=== PATIENT | female | born 1985 | race Caucasian/White ===

== ENCOUNTER 2020-07-14 10:19 | Emergency (ER) | payer OTHER, SELFPAY ==
[2020-07-14 10:29] VITALS: BP 101/81; PULSE 88; RESP 18; TEMP 36.9; O2SAT 100; BMI 46.5
--- NOTE | 2020-07-14 11:04 | ED.BACK ---
HPI - Back Pain/Injury General Chief Complaint: Back Pain/Injury Stated Complaint: back pain Time Seen by Provider: 07/14/20 10:28 Source: patient Mode of arrival: ambulatory History of Present Illness HPI Narrative: 35-year-old female with no significant past medical history presenting to the ED complaining of acute on chronic low back pain greater on the right side radiating down right lower extremity worsening since yesterday. Denies known injury/trauma or falls. States went to urgent care yesterday was prescribed naproxen and Flexeril without relief. Denies numbness, tingling, weakness, urinary incontinence/retention. MD elicited complaint: back pain Related Data Previous Rx's Medication Instructions Recorded acetaminophen [Tylenol Extra 500 mg PO Q6H PRN #20 tab 07/14/20 Strength] lidocaine [Lidoderm] 1 patch TOPICAL DAILY PRN #30 ea 07/14/20 MDD remove after 12 hours tramadol 50 mg PO Q8H PRN 3 Days #9 tab 07/14/20 Allergies Allergy/AdvReac Type Severity Reaction Status Date / Time penicillin V Allergy Unknown unknown-, Verified 07/14/20 10:32 ? Penicillins [PENICILLINS] Allergy Unknown UNKNOWN Unverified 01/03/20 16:04 Review of Systems Review of Systems: Constitutional: No Fever, No Chills Genitourinary: No Urinary Incontinence/retention Musculoskeletal: + joint pain, No Myalgias, No Joint Swelling Skin: No Skin Lesions, No rash Neuro: No Weakness, No Numbness, No Paresthesias Yes all other systems are reviewed and are negative Neurologic: Denies Sensory deficit (Neuro) [facility] Past Medical History Attestation statement: The following information was validated with the patient. Medical History (Updated 07/14/20 @ 11:04 by BRUNO Higginbotham) No known health problems Social History Social History Advance Directives: No Advance Directives Information Provided: No Physical Exam Vital Signs: Vital Signs: Last Vital Signs Temp 98.5 F 07/14/20 10:29 Pulse 88 07/14/20 10:29 Resp 18 07/14/20 10:29 BP 101/81 07/14/20 10:29 Pulse Ox 100 07/14/20 10:29 Body Mass Index 46.5 Const: General: cooperative and healthy appearing Orientation/consciousness: patient oriented x3 Limitations: no limitations HENMT: Head: Yes normal to inspection Ears: hearing grossly normal bilaterally General nose exam: Normal external nose present Face and sinus: Yes normal facial exam Eyes: General: appearance normal, both eyes and all related structures EOM: EOMs intact bilaterally Neck: Neck: Yes normal visual inspection Resp: Effort & Inspection: normal respiratory effort Cardio: Rate: regular rate Back/Spine/Pelvis: Other: No midline thoracic/lumbar spinous tenderness or step-offs. + right-sided lumbar MSK tenderness to palpation Skin: Rashes: no rashes Wounds: no wounds Neuro: Other: Strength intact throughout. No saddle anesthesia. General: patient oriented x3, gait normal, tone normal and moves all extremities Gait exam (Neuro): Normal gait present Motor exam (neuro): 5/5 motor strength present throughout Sensory Exam: No Sensory deficit (Neuro) Extrem: General: Yes normal to inspection MDM - Back Pain/Injury MDM Narrative Medical decision making narrative: On exam VSS, NAD/well-appearing, no midline spinous tenderness, no red flag symptoms, no saddle anesthesia, ambulating with steady gait. Likely MSK pain/sciatic pain. Low concern for cauda equina/cord compression. Discharge Plan Discharge Clinical Impression: Strain of lumbar region Qualifiers: Encounter type: initial encounter Qualified Code(s): S39.012A - Strain of muscle, fascia and tendon of lower back, initial encounter Patient Disposition: Home, Self-Care Instructions: Back Pain (ED) Additional Instructions: Your pain is likely musculoskeletal Continue taking previously prescribed muscle relaxer and naproxen Tramadol as an opiate pain medication, take only when pain is severe for the next 3 days Lidoderm patches are numbing patches, apply to painful area In addition take Tylenol at home Apply heat If symptoms persist or worsen, pain becomes unbearable, you developed urinary retention or incontinence, or weakness return to the ED Prescriptions: New acetaminophen [Tylenol Extra Strength] 500 mg tablet 500 mg PO Q6H PRN (Reason: pain or fever) Qty: 20 RF: 0 lidocaine [Lidoderm] 5 % adhesive patch,medicated 1 patch topical DAILY MDD remove after 12 hours PRN (Reason: pain) Qty: 30 RF: 0 tramadol 50 mg tablet 50 mg PO Q8H PRN (Reason: pain, severe) 3 Days Qty: 9 RF: 0 Referrals: Physician,Unknown [Primary Care Provider] - 5 days
== END 2020-07-14 11:10 | disposition home or self-care (01) ==
PROVIDERS: Emergency Provider Emergency Medicine
DX: S39.012A Strain of muscle, fascia and tendon of lower back, initial encounter (principal); X58.XXXA Exposure to other specified factors, initial encounter; Y93.9 Activity, unspecified; Y92.9 Unspecified place or not applicable; Y99.9 Unspecified external cause status
CPT/HCPCS: 99283